=== PATIENT | female | born 1950 | race Caucasian/White ===

== ENCOUNTER 2020-08-10 11:47 | Inpatient (IN) | payer MEDICARE, MEDICAID ==
[~2020-08-10] VITALS: Ht 167.6 cm; Wt 52.8 kg
[2020-08-10 12:08] LABS: BASOPHILS % (AUTO) 1 % (0-1); EOSINOPHILS % (AUTO) 6 % (1-7); LYMPHOCYTES % (AUTO) 20 % (22-44); MEAN CORPUSCULAR HEMOGLOBIN 31.7 pg (27.0-34.8); MEAN CORPUSCULAR HGB CONC 33.7 g/dL (32.4-35.8); MEAN PLATELET VOLUME 8.9 fL (7.4-10.4); MONOCYTES % (AUTO) 7 % (2-9); NEUTROPHILS % (AUTO) 66 % (42-75); PLATELET COUNT 299 x10^3/uL (130-400); RED BLOOD COUNT 4.91 x10^6/uL (3.82-5.3); RED CELL DISTRIBUTION WIDTH 13.5 % (9.6-15.2)
[2020-08-10 12:13] LABS: INTERNATIONAL NORMALIZED RATIO 0.95 (0.93-1.1); PROTHROMBIN TIME 9.8 Seconds (9.6-11.5)
[2020-08-10 12:16] LABS: MD NO
[2020-08-10] MEDS ORDERED: OMNIPAQUE 350 MG/ML, 75ML BOTTLE ONE (12:18)
--- NOTE | 2020-08-10 12:54 | NUR ---
PER MD RODRIGUEZ OK TO START NICARDIPINE AT STARTING DOSE. PT WAS VERY ANXIOUS DURING NEURO ASSESSMENT. PER NEUROLOGIST WHO VERBALLY CONSENTED PT. TPA TO BE ADMIN. DR RODRIGUEZ WAS MADE AWARE OF PTS BP AT TIME AND NICARDIPINE WAS STARTED.
--- NOTE | 2020-08-10 12:55 | NUR ---
PER DR RODRIGUEZ ADMIN NICARDIPINE TO ACHIEVE SBP OF NO LESS THAN 160
--- NOTE | 2020-08-10 12:57 | NUR ---
PT STATES WEAKNESS PERSISTS THAT WAS DISCUSSED WITH NEUROLOGIST. [facility] SUP CALLED TO ADMIN TPA
[2020-08-10] MEDS ORDERED: ALTEPLASE 5 MG in SYRINGE 1 EA IVPush ONE (13:00)
[2020-08-10] MEDS ORDERED: SODIUM CHLORIDE FLUSH 10ML SYR IVF PRN (13:00)
[2020-08-10] MEDS ORDERED: ALTEPLASE IV ONE (13:00)
--- NOTE | 2020-08-10 13:31 | NUR ---
REFER TO TPA SHEET FOR VITALS
[2020-08-10] MEDS ORDERED: ALTEPLASE 1 ML ONE (14:15)
[2020-08-10] MEDS ORDERED: ENALAPRILAT 1.25 MG/ML, 2ML IV PRN (14:30)
[2020-08-10] MEDS ORDERED: ONDANSETRON 2MG/ML, 2ML IVPush PRN (14:30)
[2020-08-10] MEDS ORDERED: LABETALOL 5MG/ML, 20ML IV PRN (14:30)
[2020-08-10] MEDS ORDERED: OXYcodone/APAP 5/325MG TABLET PO PRN (14:30)
[2020-08-10] MEDS ORDERED: ASPI81TA45 PO (16:29)
[2020-08-11 04:00] VITALS: BP 137/75
[2020-08-11 09:31] LABS: CHOL/HDL RATIO 3.4
[2020-08-11] MEDS ORDERED: AMIODARONE 150 MG in DEXTROSE 5% 100 ML IV ONE (13:00)
[2020-08-11] MEDS ORDERED: AMIODARONE 450 MG in DEXTROSE 5% 241 ML IV PRN (13:00)
[2020-08-11] MEDS: ACETAMINOPHEN 325 MG TABLET PO PRN ×2 (13:14→18:17)
[2020-08-11] MEDS ORDERED: LABETALOL 5MG/ML, 20ML IVPush PRN (15:00)
[2020-08-11 17:05] VITALS: BP 164/83
[2020-08-11 18:53] VITALS: BP 150/74
[2020-08-11 19:40] VITALS: BP 122/73
[2020-08-11 20:11] VITALS: BP 111/73
[2020-08-11] MEDS: LISINOPRIL 5 MG TABLET PO SCH (20:12)
[2020-08-11] MEDS ORDERED: ENALAPRILAT 1.25 MG/ML, 2ML IV PRN (20:30)
[2020-08-11] MEDS ORDERED: SIMVASTATIN 20 MG TABLET PO SCH (21:00)
[2020-08-12 01:00] VITALS: BP 120/71
[2020-08-12 04:58] LABS: BASOPHILS % (AUTO) 1 % (0-1); EOSINOPHILS % (AUTO) 7 % (1-7); LYMPHOCYTES % (AUTO) 14 % (22-44); MEAN CORPUSCULAR HEMOGLOBIN 31.5 pg (27.0-34.8); MEAN CORPUSCULAR HGB CONC 33.4 g/dL (32.4-35.8); MEAN PLATELET VOLUME 8.7 fL (7.4-10.4); MONOCYTES % (AUTO) 8 % (2-9); NEUTROPHILS % (AUTO) 70 % (42-75); PLATELET COUNT 254 x10^3/uL (130-400); RED BLOOD COUNT 4.51 x10^6/uL (3.82-5.3); RED CELL DISTRIBUTION WIDTH 13.6 % (9.6-15.2)
[2020-08-12 05:05] LABS: ALBUMIN 3.4 g/dL (3.4-5.0); ANION GAP 7 mmol/L (5-15); CALCIUM 9.3 mg/dL (8.5-10.1); CHLORIDE 109 mmol/L (98-107)
[2020-08-12 05:08] LABS: MD NO
[2020-08-12 05:09] LABS: ALANINE AMINOTRANSFERASE 17 U/L (12-78); ALKALINE PHOSPHATASE 74 U/L (45-117); BILIRUBIN,TOTAL 0.3 mg/dL (0.2-1.0); CREATININE 0.88 mg/dL (0.55-1.02); TOTAL PROTEIN 6.6 g/dL (6.4-8.2)
[2020-08-12 07:22] VITALS: BP 155/74
[2020-08-12] MEDS: LISINOPRIL 5 MG TABLET PO SCH (08:01)
[2020-08-12] MEDS: CLOPIDOGREL 75 MG TABLET PO SCH (08:01)
[2020-08-12 08:27] VITALS: BP 155/74
[2020-08-12] MEDS: LISINOPRIL 10 MG TABLET PO SCH ×2 (10:34→20:29)
[2020-08-12 12:46] VITALS: BP 136/43
[2020-08-12 20:00] VITALS: BP 150/82
[2020-08-12] MEDS: ATORVASTATIN 80 MG TABLET PO SCH (20:28)
[2020-08-13 02:12] VITALS: BP 117/84
[2020-08-13 07:16] VITALS: BP 145/86
[2020-08-13] MEDS: LISINOPRIL 10 MG TABLET PO SCH (08:00)
[2020-08-13] MEDS: CLOPIDOGREL 75 MG TABLET PO SCH (08:00)
[2020-08-13] MEDS: ASPIRIN 81 MG TABLET CHEW PO SCH (08:00)
[2020-08-13] MEDS: LISINOPRIL 20 MG TABLET PO SCH ×2 (09:00→20:04)
[2020-08-13 12:22] VITALS: BP 151/80
[2020-08-13] MEDS ORDERED: LISINOPRIL 10 MG TABLET PO ONE (12:30)
[2020-08-13 19:01] VITALS: BP 139/84
[2020-08-13] MEDS: ATORVASTATIN 80 MG TABLET PO SCH (20:04)
[2020-08-14 01:07] VITALS: BP 142/85
[2020-08-14 06:46] VITALS: BP 133/85
[2020-08-14] MEDS: ASPIRIN 81 MG TABLET CHEW PO SCH (08:54)
[2020-08-14] MEDS: CLOPIDOGREL 75 MG TABLET PO SCH (08:55)
[2020-08-14] MEDS: LISINOPRIL 20 MG TABLET PO SCH (08:55)
[2020-08-14] MEDS ORDERED: AMLODIPINE 5 MG TABLET PO SCH (09:00)
[2020-08-14] MEDS ORDERED: ATOR-2 PO (11:49)
[2020-08-14] MEDS ORDERED: AMLO-150 PO (11:49)
[2020-08-14] MEDS ORDERED: CLOP75TA PO (11:49)
[2020-08-14] MEDS ORDERED: LISI-170 PO (11:49)
[2020-08-14 12:18] VITALS: BP 140/72
[2020-08-14] MEDS ORDERED: FLU VACC QS2020-21(6MOS UP)/PF 60MCG/0.5 ML SYR IM ONE (15:00)
== END 2020-08-14 16:25 | disposition short-term general hospital (02) | DRG 62 ==
LOC: SUATTDRO 12:37 → ED 14:09 → CCU 14:10 → 4WST 08-11 18:28
PROVIDERS: ADMIT Internal Medicine; ATTEND Internal Medicine
DX: I63.9 Cerebral infarction, unspecified (principal); E87.1 Hypo-osmolality and hyponatremia; G81.91 Hemiplegia, unspecified affecting right dominant side; R47.01 Aphasia; Z77.22 Contact with and (suspected) exposure to environmental tobacco smoke (acute) (chronic); I10 Essential (primary) hypertension; E87.6 Hypokalemia; E78.5 Hyperlipidemia, unspecified; Z82.49 Family history of ischemic heart disease and other diseases of the circulatory system; Z88.5 Allergy status to narcotic agent; Z79.82 Long term (current) use of aspirin; Z80.0 Family history of malignant neoplasm of digestive organs; Z87.891 Personal history of nicotine dependence
CPT/HCPCS: 36415; 70450; 70496; 70498; 70553; 80047; 80053; 80061; 83735; 85025; 85610; 85730; 87081; 90686; 93005; 93306; 96374; 99291; G0378; J2997; Q9967; 92523-GN; J7050

== ENCOUNTER 2020-11-26 10:51 | Day surgery (SDC) | payer MEDICARE, MEDICAID ==
[~2020-11-26] VITALS: Ht 170.2 cm; Wt 56.4 kg
[~2020-11-26 10:51] MED LIST: AMLO-150 PO; ASPI81TA45 PO; ATOR-2 PO; CLOP75TA PO; LISI-170 PO
[2020-11-26] MEDS ORDERED: LIDOCAINE 2%, 20ML ONE (11:53)
== END 2020-11-26 12:15 | disposition home or self-care (01) ==
LOC: CACL 10:51
PROVIDERS: ATTEND Internal Medicine Cardiovascular Disease
DX: I63.89 Other cerebral infarction (principal); Z88.5 Allergy status to narcotic agent; Z87.891 Personal history of nicotine dependence
CPT/HCPCS: 33285; C1764

== ENCOUNTER 2021-06-27 10:16 | Outpatient (CLI) | payer MEDICARE, MEDICAID ==
[2021-06-27 10:49] LABS: ALANINE AMINOTRANSFERASE 30 U/L (12-78); ANION GAP 6 mmol/L (5-15); CALCIUM 8.9 mg/dL (8.5-10.1); CHLORIDE 106 mmol/L (98-107); CHOLESTEROL, TOTAL 135 mg/dL (140-239); CREATININE 0.86 mg/dL (0.55-1.02); TRIGLYCERIDES 90 mg/dL (50-200); VLDL CHOLESTEROL 18 mg/dL (0-25)
[2021-06-27 10:59] LABS: ALKALINE PHOSPHATASE 94 U/L (45-117); BILIRUBIN,TOTAL 0.7 mg/dL (0.2-1.0); HDL CHOL % 51 % (28-40); HDL CHOLESTEROL (DIRECT) 69 mg/dL (40-60); LDL CHOLESTEROL,CALCULATED 48 mg/dL (54-169); LDL/HDL RATIO 0.7 (0.5-3.0); TOTAL PROTEIN 7.4 g/dL (6.4-8.2)
[2021-06-27 11:12] LABS: BASOPHILS % (AUTO) 2 % (0-1); EOSINOPHILS % (AUTO) 7 % (1-7); LYMPHOCYTES % (AUTO) 21 % (22-44); MEAN CORPUSCULAR HEMOGLOBIN 31.6 pg (27.0-34.8); MEAN CORPUSCULAR HGB CONC 33.4 g/dL (32.4-35.8); MEAN PLATELET VOLUME 9.7 fL (7.4-10.4); MONOCYTES % (AUTO) 8 % (2-9); NEUTROPHILS % (AUTO) 62 % (42-75); PLATELET COUNT 223 x10^3/uL (130-400); RED BLOOD COUNT 4.37 x10^6/uL (3.82-5.3); RED CELL DISTRIBUTION WIDTH 14.1 % (9.6-15.2)
== END 2021-06-27 23:59 | disposition home or self-care (01) ==
LOC: LAB 10:16
PROVIDERS: ATTEND Internal Medicine
DX: I12.9 Hypertensive chronic kidney disease with stage 1 through stage 4 chronic kidney disease, or unspecified chronic kidney disease (principal); E78.5 Hyperlipidemia, unspecified; R73.03 Prediabetes; N18.9 Chronic kidney disease, unspecified
CPT/HCPCS: 36415; 80053; 80061; 82306; 83036; 84443; 85025